=== PATIENT | male | born 1965 | race Asian ===

== ENCOUNTER 2018-12-09 12:27 | Emergency (ER) | payer BC, OTHER ==
[2018-12-09 12:36] VITALS: BP 116/89; PULSE 90; TEMP 98.8; BMI 33.5
--- NOTE | 2018-12-09 13:18 | PDOC ---
History of Present Illness - General Chief Complaint: Respiratory Stated Complaint: FEVER/CONJESTED Time Seen by Provider: 12/09/18 13:03 - History of Present Illness Initial Comments: 12/09/18 13:16 53-year-old male with a past medical history significant for diabetes presents for evaluation of nasal congestion and intermittent fever which started about 4 days ago. He was seen at an urgent care a few days ago placed on a Z-Jed and is beginning to feel better. Past History - Past Medical History Allergies/Adverse Reactions: Allergies Allergy/AdvReac Type Severity Reaction Status Date / Time levofloxacin [From Levaquin] Allergy Verified 12/09/18 12:33 Home Medications: Ambulatory Orders Azithromycin 500 mg PO ASDIR 12/09/18 Cefuroxime Axetil [Ceftin] 250 mg PO ASDIR 12/09/18 Metformin HCl [Glucophage] 500 mg PO DAILY 12/09/18 Anemia: No Asthma: No Cancer: No Cardiac Disorders: No CVA: No COPD: No CHF: No Dementia: No Diabetes: Yes GI Disorders: No Disorders: No HTN: No Hypercholesterolemia: No Liver Disease: No Seizures: No Thyroid Disease: No - Immunization History Immunization Up to Date: Yes - Suicide/Smoking/Psychosocial Hx Smoking History: Never smoked Hx Alcohol Use: No Drug/Substance Use Hx: No Review of Systems - Review of Systems Constitutional: Yes: Chills, Fever, Malaise, Night Sweats HEENTM: Yes: Nose Congestion Respiratory: Yes: Cough *Physical Exam - Vital Signs Last Vital Signs Temp Pulse Resp BP Pulse Ox 98.8 F 90 18 116/89 100 12/09/18 12:33 12/09/18 12:33 12/09/18 12:33 12/09/18 12:33 12/09/18 12:33 - Physical Exam Comments: 12/09/18 13:16 HEAD: NC/AT EYES: Conjuntiva clear Ears: Canals and TM's normal NOSE: No d/c THROAT: Moist mucous membrances, oral pharanx clear, uvula midline NECK: Supple without adenopathy CARDIAC: S1 S2 LUNGS: CTA Full and Equal breath sounds ABDOMEN: Soft NT ND MS: Full ROM in all joints without edema NEUROLOGIC: No gross sensory or motor deficits, NVID SKIN: Normal color and temperature no lesions or rashes Moderate Sedation - Procedure Monitoring Vital Signs: Procedure Monitoring Vital Signs Temperature 98.8 F 12/09/18 12:33 Pulse Rate 90 12/09/18 12:33 Respiratory Rate 18 12/09/18 12:33 Blood Pressure 116/89 12/09/18 12:33 O2 Sat by Pulse Oximetry (%) 100 12/09/18 12:33 Medical Decision Making - Medical Decision Making 12/09/18 13:16 This is most likely a resolving bronchitis. Patient is into day 3 of his Z-Jed. He states he feels better today. He is requesting a work note. Nothing to do but continued to Z-Jed. *DC/Admit/Observation/Transfer Diagnosis at time of Disposition: Upper respiratory infection - Referrals Referrals: Onesimo Crespo MD [Primary Care Provider] - - Patient Instructions Printed Discharge Instructions: DI for Viral Upper Respiratory Infection -- Adult Additional Instructions: Continue the Z-Jed as directed. Return to the emergency room for worsening symptoms and follow-up with your primary care physician in one to 2 days for further evaluation and treatment options. - Post Discharge Activity Forms/Work/School Notes: Back to Work
== END 2018-12-09 13:31 | disposition home or self-care (01) ==
LOC: JERFT 12:27
DX: J06.9 Acute upper respiratory infection, unspecified (principal); B97.89 Other viral agents as the cause of diseases classified elsewhere; E11.9 Type 2 diabetes mellitus without complications; Z79.84 Long term (current) use of oral hypoglycemic drugs
CPT/HCPCS: 99281-25